=== PATIENT | female | born 1990 | race Caucasian/White ===

== ENCOUNTER 2022-12-29 01:50 | Emergency (ER) | payer SELFPAY ==
[~2022-12-29] VITALS: Ht 162.6 cm; Wt 87.1 kg
--- NOTE | 2022-12-29 02:02 | NUR ---
Dr. El examining patient.
[2022-12-29 02:05] VITALS: BP 138/108
--- NOTE | 2022-12-29 02:13 | NUR ---
PT TAKEN TO BED 9
--- NOTE | 2022-12-29 02:39 | NUR ---
aSSUMED CARE C/O RT EYE PAIN RAD TO BACK OF HER HEAD , BLURRY VISION. SEEING DOTS, A/O X4
[2022-12-29 02:45] LABS: BASOPHILS # (AUTO) 0.1 K/uL (0.00-0.22); BASOPHILS % (AUTO) 0.8 % (0.0-2.0); EOSINOPHILS # (AUTO) 0.5 K/uL (0-0.4); EOSINOPHILS % (AUTO) 4.1 % (0.0-4.0); HEMATOCRIT 37.2 % (36-48); HEMOGLOBIN 11.7 g/dL (12.0-16.0); LYMPHOCYTES # (AUTO) 4.8 K/uL (2.5-16.5); LYMPHOCYTES % (AUTO) 41.1 % (20.5-51.1); MEAN CORPUSCULAR HEMOGLOBIN 25 pg (27-31); MEAN CORPUSCULAR HGB CONC 32 g/dL (33-37); MEAN CORPUSCULAR VOLUME 78.3 fL (80-94); MONOCYTES # (AUTO) 0.9 K/uL (0.8-1.0); MONOCYTES % (AUTO) 7.5 % (1.7-9.3); NEUTROPHILS # (AUTO) 5.4 K/uL (1.8-7.7); NEUTROPHILS % (AUTO) 46.5 % (42.2-75.2); PLATELET COUNT (AUTO) 386 K/uL (140-450); RED BLOOD CELL COUNT(AUTO) 4.75 MIL/uL (4.20-5.40); RED CELL DISTRIBUTION WIDTH 15.8 % (11.6-13.7); WHITE BLOOD COUNT (AUTO) 11.6 K/uL (4.8-10.8)
[2022-12-29] MEDS ORDERED: lisinopriL 20 MG TAB PO ONE (03:05)
[2022-12-29 03:09] LABS: ALBUMIN 3.8 g/dL (3.4-5.0); ANION GAP 11.3 (8-16); CARBON DIOXIDE 26.7 mmol/L (21-32); CREATININE 0.6 mg/dL (0.6-1.3); TOTAL BILIRUBIN 0.2 mg/dL (0.0-1.0)
[2022-12-29] MEDS ORDERED: lisinopriL 20 MG TAB ONE (04:15)
[2022-12-29 05:52] VITALS: BP 127/86
[2022-12-29 06:23] LABS: APPEARANCE,URINE CLEAR (CLEAR); BILIRUBIN,URINE NEGATIVE (NEGATIVE); BLOOD, URINE 1+ (NEGATIVE); COLOR,URINE YELLOW (YELLOW); LEUKOCYTE ESTERASE ,URINE TRACE (NEGATIVE); NITRITE, URINE NEGATIVE (NEGATIVE); UGLUCOSE NEGATIVE (NEGATIVE)
[2022-12-29] MEDS ORDERED: cefTRIAXone 1,000 MG in LIDOCAINE MPF 1% 2.1 ML IM ONE (07:00)
--- NOTE | 2022-12-29 07:15 | NUR ---
REPORT GIVEN TO ISMA KEMP
--- NOTE | 2022-12-29 07:16 | NUR ---
DR GALAN MADE AWARE ZESTRIL NOT GIVEN , BP WNL
[2022-12-29] MEDS ORDERED: cefTRIAXone 1,000 MG VIAL ONE (07:20)
[2022-12-29] MEDS ORDERED: LIDOCAINE MPF 1% 5 ML ONE (07:20)
[2022-12-29] MEDS ORDERED: NITR-141 PO (07:33)
[2022-12-29] MEDS ORDERED: NAPR-54 PO (07:33)
--- NOTE | 2022-12-29 07:40 | NUR ---
Patient discharged with v/s stable. Written and verbal after care instructions given. Patient alert, oriented and verbalized understanding of instructions. Ambulatory with steady gait. All questions addressed prior to discharge. ID band removed. Patient advised to follow up with PMD. Rx of NAPROXEN AND MACRODANTIN given. Opportunity to ask questions provided and answered. PATIENT WAS DISCHARGED BY DR. GALAN.
== END 2022-12-29 07:40 | disposition home or self-care (01) ==
LOC: MED 01:50
DX: R51.9 Headache, unspecified (principal); N39.0 Urinary tract infection, site not specified; Z79.899 Other long term (current) drug therapy
CPT/HCPCS: 36415; 70450; 80053; 81001; 83880; 84484; 85025; 93005; 96372; 99285; J0696; J2001